=== PATIENT | male | born 1965 | race Caucasian/White ===

== ENCOUNTER → 2017-02-04 | Outpatient (CLI) | payer BC ==
--- NOTE | 2017-02-04 13:21 | RAD ---
Indication: Hematuria and left lower quadrant pain. Symptoms are long-standing. Technique: Axial images and coronal and sagittal reformatted images are provided. No comparison is available. One or more of the following individualized dose reduction techniques were utilized for this examination: 1. Automated exposure control 2. Adjustment of the mA and/or kV according to patient size 3. Use of iterative reconstruction technique Findings: There is probably a 4 mm lingular nodule partially included on the first image. There is no pleural effusion. The heart is not enlarged. Solid organ evaluation is limited without contrast. The liver, gallbladder, spleen, and adrenals are all grossly unremarkable. There is partial fatty replacement of the pancreas. There is no urolithiasis. Neither ureter is dilated. Aorta is normal caliber. Lack of oral contrast or IV contrast limits evaluation of bowel. There is no small bowel obstruction or mural thickening. There is no definite mural thickening in the colon. Normal appendix is noted. There is stranding of the mesenteric fat in the upper abdomen centrally with a few mildly prominent mesenteric lymph nodes. There is a fat-containing umbilical hernia. Bladder is unremarkable. Prostate calcifications are noted. Calcified phleboliths are noted. There are mild degenerative changes in the spine most notably at L5-S1. Impression: 1. No acute abdominal findings 2. Nonspecific stranding of the mesenteric fat in the midline upper abdomen. A few mildly prominent mesenteric lymph nodes in this region. 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 3. Suspected nodule on the initial image within the lung bases. Per [employer], no further workup is required in a low risk patient, 12 point follow-up could be considered in a high-risk patient.
== END | disposition home or self-care (01) ==
LOC: CT 12:45
PROVIDERS: ATTEND Nurse Practitioner Family
DX: K42.9 Umbilical hernia without obstruction or gangrene (principal); R31.29 Other microscopic hematuria; N42.89 Other specified disorders of prostate; I87.8 Other specified disorders of veins; M47.897 Other spondylosis, lumbosacral region; I10 Essential (primary) hypertension; M54.5 Low back pain; M62.830 Muscle spasm of back
CPT/HCPCS: 74176

== ENCOUNTER → 2017-12-06 | Outpatient (CLI) | payer BC ==
[~2017-12-06] MED LIST: 0.9 % SODIUM CHLORIDE 10 ML VIAL ONE; BUPIVACAINE MPF 0.5% 30 ML VIAL. ONE; IOHEXOL 300 MG/ML 50 ML VIAL. ONE; LIDOCAINE 1% PF 30 ML VIAL. ONE; methylPREDNISolone ACETATE 40 MG/ML VIAL. ONE
== END | disposition home or self-care (01) ==
LOC: SURG 13:01
PROVIDERS: ATTEND Anesthesiology Pain Medicine
DX: M54.16 Radiculopathy, lumbar region (principal)
CPT/HCPCS: 62323; J1030; J2001; J3490; Q9967

== ENCOUNTER → 2018-01-24 | Day surgery (SDC) | payer BC ==
[~2018-01-24] MED LIST changes: +BUPIVACAINE MPF 0.25% 30 ML VIAL. ONE; -BUPIVACAINE MPF 0.5% 30 ML VIAL. ONE
== END | disposition home or self-care (01) ==
LOC: SURG 09:51
PROVIDERS: ATTEND Anesthesiology Pain Medicine
DX: M54.16 Radiculopathy, lumbar region (principal); Z79.899 Other long term (current) drug therapy
CPT/HCPCS: 62323; J1030; J2001; J3490; Q9967